=== PATIENT | male | born 1960 | race Hispanic/Latino ===

== ENCOUNTER 2020-12-30 20:47 | Inpatient (IN) | payer MEDICAID ==
[2020-12-30 23:02] LABS: Basophils # (Auto) 0.1 K/mm3 (0.0-0.1); Basophils % (Auto) 1.3 % (0.0-1.8); Eosinophils # (Auto) 0.2 K/mm3 (0.0-0.4); Eosinophils % (Auto) 3.8 % (0.0-4.3); Hematocrit 25.9 % (35.5-45.6); Hemoglobin 8.4 gm/dl (11.8-15.2); Lymphocytes # (Auto) 0.8 K/mm3 (1.2-5.4); Lymphocytes % (Auto) 14.3 % (13.4-35.0); Mean Corpuscular HGB Conc 33 % (32-34); Mean Corpuscular Volume 79 fl (84-94); Monocytes # (Auto) 0.5 K/mm3 (0.0-0.8); Monocytes % (Auto) 8.4 % (0.0-7.3); Platelet Count 162 K/mm3 (140-440); Red Blood Count 3.27 M/mm3 (3.65-5.03); Red Cell Distribution Width 19.8 % (13.2-15.2)
[2020-12-30 23:13] LABS: INR 2.36 (0.87-1.13)
[2020-12-30 23:14] LABS: Partial Thromboplastin Time 46.8 Sec. (24.2-36.6)
--- NOTE | 2020-12-30 23:15 | XRay Report ---
CHEST 1 VIEW 12/30/2020 9:51 PM INDICATION / CLINICAL INFORMATION: volume overload. COMPARISON: None available. FINDINGS: SUPPORT DEVICES: None. HEART / MEDIASTINUM: There is mild to moderate enlargement of the cardiac silhouette. LUNGS / PLEURA: There are generalized bilateral pulmonary opacities. No significant pleural effusion. No pneumothorax. ADDITIONAL FINDINGS: No significant additional findings. IMPRESSION: Suspected bilateral edema/atelectasis with mild to moderate cardiomegaly. Signer Name: Wesly Palmer MD Signed: 12/30/2020 11:10 PM Workstation Name: [id number]
[2020-12-30 23:17] LABS: Albumin 4.1 g/dL (3.9-5); Calcium 8.4 mg/dL (8.4-10.2)
--- NOTE | 2020-12-31 00:20 | Emergency Department Report ---
ED General Adult HPI - General Chief complaint: Abdominal Pain Stated complaint: ABD PAIN Time Seen by Provider: 12/30/20 21:25 Source: EMS Mode of arrival: Stretcher Limitations: Physical Limitation - History of Present Illness Initial comments: The patient presents to the emergency department from [facility] for evaluation of fluid retention. Patient states that he has congestive heart failure and takes 40 mg Lasix twice daily. Patient states he is holding fluid which can be seen in his legs and with increased girth of his abdomen. Patient states he was recently discharged from [facility] on Monday for the same chief complaint. Patient denies chest pain, headache, focal neurological deficits. -: Gradual Severity scale (0 -10): 0 Consistency: constant Improves with: none Worsens with: none Associated Symptoms: denies other symptoms Treatments Prior to Arrival: none - Related Data Allergies Allergy/AdvReac Type Severity Reaction Status Date / Time codeine Allergy Swelling Verified 12/31/20 01:09 ED Review of Systems ROS: Stated complaint: ABD PAIN Other details as noted in HPI Comment: All other systems reviewed and negative Constitutional: denies: chills, fever Eyes: denies: eye pain, eye discharge, vision change ENT: denies: ear pain, throat pain Respiratory: denies: cough, shortness of breath, wheezing Cardiovascular: denies: chest pain, palpitations Endocrine: no symptoms reported Gastrointestinal: denies: abdominal pain, nausea, diarrhea Genitourinary: denies: urgency, dysuria Musculoskeletal: denies: back pain, joint swelling, arthralgia Skin: denies: rash, lesions Neurological: denies: headache, weakness, paresthesias Psychiatric: denies: anxiety, depression Hematological/Lymphatic: denies: easy bleeding, easy bruising ED Past Medical Hx - Social History Smoking Status: Never Smoker Substance Use Type: None ED Physical Exam - General Limitations: Physical Limitation General appearance: alert, in no apparent distress - Head Head exam: Present: atraumatic, normocephalic - Eye Eye exam: Present: normal appearance - ENT ENT exam: Present: mucous membranes moist - Neck Neck exam: Present: normal inspection - Respiratory Respiratory exam: Present: normal lung sounds bilaterally, rales. Absent: respiratory distress - Cardiovascular Cardiovascular Exam: Present: regular rate, normal rhythm. Absent: systolic murmur, diastolic murmur, rubs, gallop - GI/Abdominal GI/Abdominal exam: Present: soft, distended, normal bowel sounds. Absent: tenderness - Rectal Rectal exam: Present: deferred - Extremities Exam Extremities exam: Present: normal inspection, other (Bilateral pitting edema) - Back Exam Back exam: Present: normal inspection - Neurological Exam Neurological exam: Present: alert, oriented X3 - Psychiatric Psychiatric exam: Present: normal affect, normal mood - Skin Skin exam: Present: warm, dry, intact, normal color. Absent: rash ED Course Vital Signs 12/30/20 12/30/20 12/30/20 21:10 21:31 22:01 Temperature 98.1 F Pulse Rate 92 H 89 94 H Respiratory 17 20 21 Rate Blood Pressure 126/72 124/63 122/76 Blood Pressure 126/72 [Left] O2 Sat by Pulse 97 95 91 Oximetry 12/30/20 12/30/20 12/30/20 22:31 23:01 23:31 Temperature Pulse Rate 95 H 89 92 H Respiratory 13 21 14 Rate Blood Pressure 120/65 129/63 130/71 Blood Pressure [Left] O2 Sat by Pulse 92 98 99 Oximetry ED Medical Decision Making - Lab Data Result diagrams: 12/30/20 22:33 12/30/20 22:33 Lab Results 12/30/20 12/30/20 12/30/20 Range/Units 22:33 22:33 22:33 WBC 5.8 (4.5-11.0) K/mm3 RBC 3.27 L (3.65-5.03) M/mm3 Hgb 8.4 L (11.8-15.2) gm/dl Hct 25.9 L (35.5-45.6) % MCV 79 L (84-94) fl MCH 26 L (28-32) pg MCHC 33 (32-34) % RDW 19.8 H (13.2-15.2) % Plt Count 162 (140-440) K/mm3 Lymph % (Auto) 14.3 (13.4-35.0) % [place] % (Auto) 8.4 H (0.0-7.3) % Eos % (Auto) 3.8 (0.0-4.3) % Baso % (Auto) 1.3 (0.0-1.8) % Lymph # (Auto) 0.8 L (1.2-5.4) K/mm3 [place] # (Auto) 0.5 (0.0-0.8) K/mm3 Eos # (Auto) 0.2 (0.0-0.4) K/mm3 Baso # (Auto) 0.1 (0.0-0.1) K/mm3 Seg Neutrophils % 72.2 H (40.0-70.0) % Seg Neutrophils # 4.2 (1.8-7.7) K/mm3 PT 26.0 H (12.2-14.9) Sec. INR 2.36 H (0.87-1.13) APTT 46.8 H (24.2-36.6) Sec. Sodium 137 (137-145) mmol/L Potassium 4.7 (3.6-5.0) mmol/L Chloride 100.0 (98-107) mmol/L Carbon Dioxide 27 (22-30) mmol/L Anion Gap 15 mmol/L BUN 35 H (9-20) mg/dL Creatinine 2.4 H (0.8-1.3) mg/dL Estimated GFR 28 ml/min BUN/Creatinine Ratio 15 % Glucose 87 (75-100) mg/dL Calcium 8.4 (8.4-10.2) mg/dL Total Bilirubin 0.80 (0.1-1.2) mg/dL AST 21 (5-40) units/L ALT 13 (7-56) units/L Alkaline Phosphatase 77 (35-129) units/L NT-Pro-B Natriuret Pep 4775 H (0-900) pg/mL Total Protein 7.2 (6.3-8.2) g/dL Albumin 4.1 (3.9-5) g/dL Albumin/Globulin Ratio 1.3 % Lipase 73 H (13-60) units/L - Radiology Data Radiology results: report reviewed - Medical Decision Making Patient given 60 mg IV Lasix Critical Care Time: Yes Critical care time in (mins) excluding proc time.: 35 Critical care attestation.: If time is entered above; I have spent that time in minutes in the direct care of this critically ill patient, excluding procedure time. ED Disposition Clinical Impression: CHF exacerbation Disposition: OP ADMIT IP TO THIS HOSP Is pt being admited?: Yes Does the pt Need Aspirin: No Condition: Fair Referrals: MIKEY ARRIETA MD [Primary Care Provider] - 3-5 Days
[2020-12-31] MEDS ORDERED: FUROSEMIDE 40 MG/4 ML INJ IV ONE (01:20)
[2020-12-31] MEDS ORDERED: NITROGLYCERIN 0.4 MG TAB SUBL SL PRN (02:42)
[2020-12-31] MEDS ORDERED: ONDANSETRON 4 MG/2 ML INJ IV PRN (02:42)
[2020-12-31] MEDS ORDERED: hydrALAZINE 20 MG/1 ML INJ IV PRN (02:44)
--- NOTE | 2020-12-31 02:49 | History and Physical Report ---
History of Present Illness Date of examination: 12/31/20 Date of admission: 12/31/20 01:29 Chief complaint: Abdominal pain Abdominal swelling History of present illness: 60 years old male with history of CHF morbid obesity was brought to the emergency department from [facility] for evaluation of fluid retention and abdominal pain and swelling. Patient states that he has congestive heart failure and takes 40 mg Lasix twice daily. Patient states he i s holding fluid which can be seen in his legs and with increased girth of his abdomen. Patient states he was recently discharged from [facility] on Monday for the same chief complaint. Patient denies chest pain, headache, focal neurological deficits. In the ER patient is found to have acute CHF exacerbation patient BNP is 4775. Also patient BUN is 35 creatinine 2.4 Past History Past Medical History: heart failure, hypertension, other (Obesity, back pain) Medications and Allergies Allergies Allergy/AdvReac Type Severity Reaction Status Date / Time codeine Allergy Swelling Verified 12/31/20 01:09 Review of Systems Cardiovascular: edema, shortness of breath, dyspnea on exertion Respiratory: shortness of breath, dyspnea on exertion Gastrointestinal: abdominal pain, other (Abdominal swelling) Exam - Constitutional Vitals: Temp Pulse Resp BP Pulse Ox 98.1 F 90 22 158/96 97 12/30/20 21:10 12/31/20 02:05 12/31/20 02:05 12/31/20 02:05 12/31/20 02:05 General appearance: Present: no acute distress, well-nourished - EENT Eyes: Present: PERRL ENT: hearing intact, clear oral mucosa - Neck Neck: Present: supple, normal ROM - Respiratory Respiratory effort: normal Respiratory: bilateral: rales - Cardiovascular Heart Sounds: Present: S1 & S2. Absent: rub, click - Extremities Extremities: pulses symmetrical, No edema Extremity abnormal: edema Peripheral Pulses: within normal limits - Abdominal General gastrointestinal: Present: soft, non-tender, non-distended, normal bowel sounds Male genitourinary: Present: normal - Integumentary Integumentary: Present: clear, warm, dry - Musculoskeletal Musculoskeletal: gait normal, strength equal bilaterally - Psychiatric Psychiatric: appropriate mood/affect, intact judgment & insight - Neurologic Neurologic: CNII-XII intact, moves all extremities Results - Labs CBC & Chem 7: 12/30/20 22:33 12/30/20 22:33 Labs: Laboratory Last Values WBC 5.8 K/mm3 (4.5-11.0) 12/30/20 22:33 RBC 3.27 M/mm3 (3.65-5.03) L 12/30/20 22:33 Hgb 8.4 gm/dl (11.8-15.2) L 12/30/20 22:33 Hct 25.9 % (35.5-45.6) L 12/30/20 22:33 MCV 79 fl (84-94) L 12/30/20 22:33 MCH 26 pg (28-32) L 12/30/20 22:33 MCHC 33 % (32-34) 12/30/20 22:33 RDW 19.8 % (13.2-15.2) H 12/30/20 22:33 Plt Count 162 K/mm3 (140-440) 12/30/20 22:33 Lymph % (Auto) 14.3 % (13.4-35.0) 12/30/20 22:33 [place] % (Auto) 8.4 % (0.0-7.3) H 12/30/20 22:33 Eos % (Auto) 3.8 % (0.0-4.3) 12/30/20 22:33 Baso % (Auto) 1.3 % (0.0-1.8) 12/30/20 22:33 Lymph # (Auto) 0.8 K/mm3 (1.2-5.4) L 12/30/20 22:33 [place] # (Auto) 0.5 K/mm3 (0.0-0.8) 12/30/20 22:33 Eos # (Auto) 0.2 K/mm3 (0.0-0.4) 12/30/20 22:33 Baso # (Auto) 0.1 K/mm3 (0.0-0.1) 12/30/20 22:33 Seg Neutrophils % 72.2 % (40.0-70.0) H 12/30/20 22:33 Seg Neutrophils # 4.2 K/mm3 (1.8-7.7) 12/30/20 22:33 PT 26.0 Sec. (12.2-14.9) H 12/30/20 22:33 INR 2.36 (0.87-1.13) H 12/30/20 22:33 APTT 46.8 Sec. (24.2-36.6) H 12/30/20 22:33 Sodium 137 mmol/L (137-145) 12/30/20 22:33 Potassium 4.7 mmol/L (3.6-5.0) 12/30/20 22:33 Chloride 100.0 mmol/L (98-107) 12/30/20 22:33 Carbon Dioxide 27 mmol/L (22-30) 12/30/20 22:33 Anion Gap 15 mmol/L 12/30/20 22:33 BUN 35 mg/dL (9-20) H 12/30/20 22:33 Creatinine 2.4 mg/dL (0.8-1.3) H 12/30/20 22:33 Estimated GFR 28 ml/min 12/30/20 22:33 BUN/Creatinine Ratio 15 % 12/30/20 22:33 Glucose 87 mg/dL (75-100) 12/30/20 22:33 Calcium 8.4 mg/dL (8.4-10.2) 12/30/20 22:33 Total Bilirubin 0.80 mg/dL (0.1-1.2) 12/30/20 22:33 AST 21 units/L (5-40) 12/30/20 22:33 ALT 13 units/L (7-56) 12/30/20 22:33 Alkaline Phosphatase 77 units/L (35-129) 12/30/20 22:33 NT-Pro-B Natriuret Pep 4775 pg/mL (0-900) H 12/30/20 22:33 Total Protein 7.2 g/dL (6.3-8.2) 12/30/20 22:33 Albumin 4.1 g/dL (3.9-5) 12/30/20 22:33 Albumin/Globulin Ratio 1.3 % 12/30/20 22:33 Lipase 73 units/L (13-60) H 12/30/20 22:33 - Imaging and Cardiology Chest x-ray: report reviewed Assessment and Plan VTE prophylaxis?: Chemical Plan of care discussed with patient/family: Yes - Patient Problems (1) CHF exacerbation Current Visit: Yes Status: Acute Plan to address problem: Admit the patient to the medical floor telemetry. Put the patient on CHF pathway. Lasix 40 mg IV daily. Fluid restriction. Maintain strict input output. Echocardiogram. Will consult cardiology for evaluation (2) Hypertension Current Visit: Yes Status: Acute Plan to address problem: Patient is on hydralazine 10 mg IV every 6 hours as needed. We also put the patient on lisinopril 5 mg p.o. daily. We will monitor the blood pressure closely (3) Morbid obesity Current Visit: Yes Status: Acute Plan to address problem: We counseled the patient regarding weight reduction. Outpatient referral for bariatric surgery (4) ALFREDA (acute kidney injury) Current Visit: Yes Status: Acute Plan to address problem: Patient BUN is 35 creatinine is 2.4. Will avoid nephrotoxic drug. We will consult nephrology for evaluation. Repeat BMP in the morning (5) DVT prophylaxis Current Visit: Yes Status: Acute Plan to address problem: Heparin 5000 units subcu every 8 hours for DVT prophylaxis. Protonix 40 mg p.o. daily for GI prophylaxis. Patient is a full code
[2020-12-31] MEDS: ACETAMINOPHEN 325 MG TAB PO PRN ×2 (04:21→20:56)
[2020-12-31] MEDS: HEPARIN 5,000 UNIT/1 ML VIAL SUB-Q SCH ×3 (05:36→21:01)
[2020-12-31] MEDS ORDERED: FUROSEMIDE 40 MG/4 ML INJ IV SCH (06:00)
[2020-12-31] MEDS: PANTOPRAZOLE 40 MG TAB PO SCH (08:29)
[2020-12-31] MEDS: IPRATROPIUM/ALBUTEROL SULFATE 3 ML AMPUL.NEB IH SCH ×3 (08:37→21:26)
[2020-12-31] MEDS: FUROSEMIDE 40 MG/4 ML INJ IV SCH (09:03)
[2020-12-31] MEDS ORDERED: FAMOTIDINE 20 MG TAB PO SCH (10:00)
--- NOTE | 2020-12-31 11:16 | Consultation ---
History of Present Illness - Reason for Consult Consult date: 12/31/20 - History of Present Illness patient is a60 year old male with CHF and CKD, had a recent admission to [facility] for volume overload, he was treated with diuretics and discharged to SNF, he was sent to [facility] due to worsening volume overload and SOB, CXR noted for pulm edema and he was started on lasix. he was noted to have abnormal kidney function and renal consult was requested Past History Past Medical History: heart failure, hypertension, other (Obesity, back pain) Medications and Allergies Allergies Allergy/AdvReac Type Severity Reaction Status Date / Time codeine Allergy Swelling Verified 12/31/20 01:09 Active Meds: Active Medications Acetaminophen (Acetaminophen 325 Mg Tab) 650 mg PO Q4H PRN PRN Reason: Pain MILD(1-3)/Fever >100.5/TAN Last Admin: 12/31/20 04:21 Dose: 650 mg Documented by: Albuterol/Ipratropium (Ipratropium/Albuterol Sulfate 3 Ml Ampul.Neb) 1 ampul IH Q6HRT [facility] Last Admin: 12/31/20 08:37 Dose: 1 ampul Documented by: Furosemide (Furosemide 40 Mg/4 Ml Inj) 40 mg IV QDAY [facility] Last Admin: 12/31/20 09:03 Dose: 40 mg Documented by: Heparin Sodium (Porcine) (Heparin 5,000 Unit/1 Ml Vial) 5,000 unit SUB-Q Q8HR [facility] Last Admin: 12/31/20 05:36 Dose: 5,000 unit Documented by: Hydralazine HCl (Hydralazine 20 Mg/1 Ml Inj) 10 mg IV Q6H PRN PRN Reason: htn Nitroglycerin (Nitroglycerin 0.4 Mg Tab Subl) 0.4 mg SL .Q5MIN PRN PRN Reason: Chest Pain Ondansetron HCl (Ondansetron 4 Mg/2 Ml Inj) 4 mg IV Q8H PRN PRN Reason: Nausea And Vomiting Pantoprazole Sodium (Pantoprazole 40 Mg Tab) 40 mg PO QDAC [facility] Last Admin: 12/31/20 08:29 Dose: 40 mg Documented by: Sodium Chloride (Sodium Chloride 0.9% 10 Ml Flush Syringe) 10 ml IV BID [facility] Sodium Chloride (Sodium Chloride 0.9% 10 Ml Flush Syringe) 10 ml IV PRN PRN PRN Reason: LINE FLUSH Review of Systems All systems: negative (SOB) Exam - Vital Signs Vital signs: Vital Signs Temp Pulse Resp BP Pulse Ox 98.1 F 92 H 17 126/72 97 12/30/20 21:10 12/30/20 21:10 12/30/20 21:10 12/30/20 21:10 12/30/20 21:10 - General Appearance General appearance: other (on BIPAP) EENT: ATNC, PERRL, mucous membranes dry Neck: Present: neck supple Respiratory: Decreased Breath Sounds Heart: tachycardia Gastrointestinal: Present: normoactive bowel sounds, obese Integumentary: no rash, warm and dry Neurologic: no focal deficit, no asterixis Musculoskeletal: Present: other (2+ pitting edema in BLE) Psychiatric: cooperative Results - Lab Results 12/30/20 22:33 12/30/20 22:33 Most recent lab results Calcium 8.4 mg/dL (8.4-10.2) 12/30/20 22:33 Assessment and Plan (1) CHF exacerbation (2) Hypertension (3) Morbid obesity (4) ALFREDA (acute kidney injury) his kidney function close to baseline THOMAS jade for now will check bladder scan, he came with [place], excellent UOP avoid nephrotoxins strict I&O daily weight
--- NOTE | 2020-12-31 11:32 | Consultation ---
History of Present Illness Consult date: 12/31/20 Consult reason: congestive heart failure History of present illness: This is a 60-year old male that has a history of atrial fibrillation, on Xarelto for anticoagulation. An echocardiogram done 6 months ago reports an LVEF 45-50%. There was dilated right heart chambers with moderate pulmonary hypertension, RVSP 55 mmHg. Findings consistent with cor-pulmonale. Co-morbidities includes chronic renal failure, hypertension, urinary retention, Anemia, SUSHILA uses a CPAP, and obesity. He was brought in from the retirement with shortness of breath and edema. Of note, he was recently discharged from [facility] with similar presentation symptoms. Chest x-ray reports mild cardiomegaly with bilateral patchy opacities. No fever. Initial labs shows a HCT of 25. INR of 2.3. Creatinine of 2.4 and a elevated lipase of 73. AST is normal. There is no 12- lead ECG available but telemetry shows atrial fibrillation with a well controlled ventricular rate. Past History Past Medical History: hypertension, renal failure, other (Obesity, back pain) Medications and Allergies Allergies Allergy/AdvReac Type Severity Reaction Status Date / Time codeine Allergy Swelling Verified 12/31/20 01:09 Active Meds: Active Medications Acetaminophen (Acetaminophen 325 Mg Tab) 650 mg PO Q4H PRN PRN Reason: Pain MILD(1-3)/Fever >100.5/TAN Last Admin: 12/31/20 04:21 Dose: 650 mg Documented by: Albuterol/Ipratropium (Ipratropium/Albuterol Sulfate 3 Ml Ampul.Neb) 1 ampul IH Q6HRT [facility] Last Admin: 12/31/20 08:37 Dose: 1 ampul Documented by: Furosemide (Furosemide 40 Mg/4 Ml Inj) 40 mg IV QDAY [facility] Last Admin: 12/31/20 09:03 Dose: 40 mg Documented by: Heparin Sodium (Porcine) (Heparin 5,000 Unit/1 Ml Vial) 5,000 unit SUB-Q Q8HR [facility] Last Admin: 12/31/20 05:36 Dose: 5,000 unit Documented by: Hydralazine HCl (Hydralazine 20 Mg/1 Ml Inj) 10 mg IV Q6H PRN PRN Reason: htn Nitroglycerin (Nitroglycerin 0.4 Mg Tab Subl) 0.4 mg SL .Q5MIN PRN PRN Reason: Chest Pain Ondansetron HCl (Ondansetron 4 Mg/2 Ml Inj) 4 mg IV Q8H PRN PRN Reason: Nausea And Vomiting Pantoprazole Sodium (Pantoprazole 40 Mg Tab) 40 mg PO QDAC [facility] Last Admin: 12/31/20 08:29 Dose: 40 mg Documented by: Sodium Chloride (Sodium Chloride 0.9% 10 Ml Flush Syringe) 10 ml IV BID [facility] Sodium Chloride (Sodium Chloride 0.9% 10 Ml Flush Syringe) 10 ml IV PRN PRN PRN Reason: LINE FLUSH Physical Examination Vital Signs Temp Pulse Resp BP Pulse Ox 98.1 F 92 H 17 126/72 97 12/30/20 21:10 12/30/20 21:10 12/30/20 21:10 12/30/20 21:10 12/30/20 21:10 General appearance: other (on Cpap) Cardiac: Positive: irregularly irregular Results 12/30/20 22:33 12/30/20 22:33 Cardiac Enzymes 12/30/20 Range/Units 22:33 AST 21 (5-40) units/L Coagulation 12/30/20 Range/Units 22:33 PT 26.0 H (12.2-14.9) Sec. INR 2.36 H (0.87-1.13) APTT 46.8 H (24.2-36.6) Sec. CBC 12/30/20 Range/Units 22:33 WBC 5.8 (4.5-11.0) K/mm3 RBC 3.27 L (3.65-5.03) M/mm3 Hgb 8.4 L (11.8-15.2) gm/dl Hct 25.9 L (35.5-45.6) % Plt Count 162 (140-440) K/mm3 Lymph # (Auto) 0.8 L (1.2-5.4) K/mm3 [place] # (Auto) 0.5 (0.0-0.8) K/mm3 Eos # (Auto) 0.2 (0.0-0.4) K/mm3 Baso # (Auto) 0.1 (0.0-0.1) K/mm3 Comprehensive Metabolic Panel 12/30/20 Range/Units 22:33 Sodium 137 (137-145) mmol/L Potassium 4.7 (3.6-5.0) mmol/L Chloride 100.0 (98-107) mmol/L Carbon Dioxide 27 (22-30) mmol/L BUN 35 H (9-20) mg/dL Creatinine 2.4 H (0.8-1.3) mg/dL Glucose 87 (75-100) mg/dL Calcium 8.4 (8.4-10.2) mg/dL AST 21 (5-40) units/L ALT 13 (7-56) units/L Alkaline Phosphatase 77 (35-129) units/L Total Protein 7.2 (6.3-8.2) g/dL Albumin 4.1 (3.9-5) g/dL Assessment and Plan Atrial fibrillation, rate controlled on Xarelto as an outpatient Cor-pulmonale Volume overload SUSHILA, uses Cpap Hypertension Urinary retention Chronic renal failure Chronic Anemia
--- NOTE | 2020-12-31 14:07 | Event Note ---
Date: 12/31/20 This is the second visit after midnight Patient seen and examined Currently resting with BiPAP This is an 60 years old white male with history of CHF morbid obesity CKD was brought to the emergency department from [facility] for evaluation of fluid retention and abdominal pain and swelling. Continue current management and plan as dictated in the H&P Follow cardiology recommends recommendation
[2021-01-01] MEDS: ACETAMINOPHEN 325 MG TAB PO PRN ×3 (00:55→22:07)
[2021-01-01] MEDS: IPRATROPIUM/ALBUTEROL SULFATE 3 ML AMPUL.NEB IH SCH ×4 (01:17→21:25)
[2021-01-01] MEDS: HEPARIN 5,000 UNIT/1 ML VIAL SUB-Q SCH ×3 (05:44→22:07)
[2021-01-01 05:55] LABS: Basophils # (Auto) 0.1 K/mm3 (0.0-0.1); Basophils % (Auto) 0.9 % (0.0-1.8); Eosinophils # (Auto) 0.2 K/mm3 (0.0-0.4); Eosinophils % (Auto) 3.1 % (0.0-4.3); Hematocrit 25.5 % (35.5-45.6); Hemoglobin 8.3 gm/dl (11.8-15.2); Lymphocytes # (Auto) 0.8 K/mm3 (1.2-5.4); Lymphocytes % (Auto) 13.4 % (13.4-35.0); Mean Corpuscular HGB Conc 33 % (32-34); Mean Corpuscular Volume 78 fl (84-94); Monocytes # (Auto) 0.4 K/mm3 (0.0-0.8); Monocytes % (Auto) 7.4 % (0.0-7.3); Platelet Count 163 K/mm3 (140-440); Red Blood Count 3.26 M/mm3 (3.65-5.03)
[2021-01-01 06:11] LABS: Calcium 8.4 mg/dL (8.4-10.2)
[2021-01-01] MEDS: PANTOPRAZOLE 40 MG TAB PO SCH (08:14)
[2021-01-01] MEDS: FUROSEMIDE 40 MG/4 ML INJ IV SCH (09:43)
--- NOTE | 2021-01-01 10:49 | Electrocardiograph Report ---
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
--- NOTE | 2021-01-01 10:55 | Progress Note ---
Assessment and Plan (1) CHF exacerbation (2) Hypertension (3) Morbid obesity (4) ALFREDA (acute kidney injury) kidney function is stable, diuresis per cardiology, good UOP avoid nephrotoxins strict I&O daily weight No indication for [employer] Subjective Date of service: 01/01/21 Principal diagnosis: CKD Interval history: no overnight events Objective - Vital Signs Vital signs: Vital Signs - 12hr 12/31/20 01/01/21 01/01/21 23:57 01:25 05:12 Temperature 97.2 F L Pulse Rate 94 H 103 H Pulse Rate [ 104 H Anterior Bilateral Throughout] Respiratory 34 H 22 Rate Respiratory 18 Rate [Anterior Bilateral Throughout] Blood Pressure 147/67 151/68 O2 Sat by Pulse 98 98 Oximetry 01/01/21 01/01/21 01/01/21 06:00 08:20 08:23 Temperature Pulse Rate 103 H Pulse Rate [ 91 H Anterior Bilateral Throughout] Respiratory 20 Rate Respiratory 25 H Rate [Anterior Bilateral Throughout] Blood Pressure O2 Sat by Pulse 98 Oximetry 01/01/21 01/01/21 09:44 10:20 Temperature Pulse Rate 118 H 86 Pulse Rate [ Anterior Bilateral Throughout] Respiratory 25 H Rate Respiratory Rate [Anterior Bilateral Throughout] Blood Pressure 175/88 O2 Sat by Pulse 98 Oximetry - General Appearance General appearance: well-developed, well-nourished, obese EENT: ATNC, PERRL, mucous membranes moist Neck: no JVD, no carotid bruit Respiratory: Present: Decreased Breath Sounds Cardiology: tachycardia Gastrointestinal: normoactive bowel sounds, no tenderness, no distended, no masses, obese Integumentary: no rash, warm and dry Neurologic: no focal deficit, no asterixis, alert and oriented x3 Musculoskeletal: other (edema in BLE) Psychiatric: cooperative - Lab 01/01/21 04:44 01/01/21 04:44 Most recent lab results Calcium 8.4 mg/dL (8.4-10.2) 01/01/21 04:44 Medications & Allergies - Medications Allergies/Adverse Reactions: Allergies codeine Allergy (Verified 12/31/20 01:09) Swelling Active Medications: Generic Name Dose Route Start Last Admin Trade Name Freq PRN Reason Stop Dose Admin Acetaminophen 650 mg 12/31/20 02:42 01/01/21 00:55 Acetaminophen 325 Mg Tab PO 650 mg Q4H PRN Administration Pain MILD(1-3)/Fever >100.5/TAN Albuterol/Ipratropium 1 ampul 12/31/20 08:00 01/01/21 08:20 Ipratropium/Albuterol Sulfate 3 Ml Ampul.Neb IH 1 ampul Q6HRT [facility] Administration Furosemide 40 mg 12/31/20 10:00 01/01/21 09:43 Furosemide 40 Mg/4 Ml Inj IV 40 mg QDAY [facility] Administration Heparin Sodium (Porcine) 5,000 unit 12/31/20 06:00 01/01/21 05:44 Heparin 5,000 Unit/1 Ml Vial SUB-Q 5,000 unit Q8HR [facility] Administration Hydralazine HCl 10 mg 12/31/20 02:44 01/01/21 09:44 Hydralazine 20 Mg/1 Ml Inj IV 10 mg Q6H PRN Administration htn Nitroglycerin 0.4 mg 12/31/20 02:42 Nitroglycerin 0.4 Mg Tab Subl SL .Q5MIN PRN Chest Pain Ondansetron HCl 4 mg 12/31/20 02:42 Ondansetron 4 Mg/2 Ml Inj IV Q8H PRN Nausea And Vomiting Pantoprazole Sodium 40 mg 12/31/20 07:30 01/01/21 08:14 Pantoprazole 40 Mg Tab PO 40 mg QDAC [facility] Administration Sodium Chloride 10 ml 12/31/20 10:00 01/01/21 09:47 Sodium Chloride 0.9% 10 Ml Flush Syringe IV 10 ml BID [facility] Administration Sodium Chloride 10 ml 12/31/20 02:42 Sodium Chloride 0.9% 10 Ml Flush Syringe IV PRN PRN LINE FLUSH
--- NOTE | 2021-01-01 14:19 | Progress Note ---
Subjective Date of service: 01/01/21 Principal diagnosis: CKD Interval history: 60 years old male with history of CHF morbid obesity was brought to the emergency department from [facility] for evaluation of fluid retention and abdominal pain and swelling. Patient states that he has congestive heart failure and takes 40 mg Lasix twice daily. Patient states he is holding fluid which can be seen in his legs and with increased girth of his abdomen. Patient states he was recently discharged from [facility] on Monday for the same chief complaint. Patient denies chest pain, headache, focal neurological deficits. In the ER patient is found to have acute CHF exacerbation patient BNP is 4775. Also patient BUN is 35 creatinine 2.4 01/01 patient is alert and oriented x3. Complains of mild shortness of breath complains of.Numbness in the legs which he says is due to neuropathy. He denies any cough or chest pain. Denies fever or chills. Nephrology and cardiology not es reviewed. Lab results reviewed Assessment and plan Volume overload Cardiology note reviewed Continue IV diuresis Echo results reviewed EF 45 to 50% Cor pulmonale Cardiology note reviewed Chronic hypoxia Patient is O2 dependent and states he is on 4 L at home via nasal cannula Atrial fibrillation-rate controlled Continue Xarelto Acute kidney injury Rule out acute on chronic kidney disease Nephrology consulted Continue diuresis Avoid nephrotoxins Obstructive sleep apnea on CPAP at at bedtime Morbid obesity Due to excess calories Counseling on diet, exercise and weight loss was emphasized Normocytic anemia No overt bleeding Monitor H&H Objective - Constitutional Vitals: Vital Signs - 12hr 01/01/21 01/01/21 01/01/21 05:12 06:00 08:20 Temperature 97.2 F L Pulse Rate 103 H 103 H Pulse Rate [ 91 H Anterior Bilateral Throughout] Respiratory 22 Rate Respiratory 25 H Rate [Anterior Bilateral Throughout] Blood Pressure 151/68 O2 Sat by Pulse 98 98 Oximetry 01/01/21 01/01/21 01/01/21 08:23 09:44 10:20 Temperature Pulse Rate 118 H 86 Pulse Rate [ Anterior Bilateral Throughout] Respiratory 20 25 H Rate Respiratory Rate [Anterior Bilateral Throughout] Blood Pressure 175/88 O2 Sat by Pulse 98 Oximetry 01/01/21 13:05 Temperature Pulse Rate Pulse Rate [ 98 H Anterior Bilateral Throughout] Respiratory Rate Respiratory 24 Rate [Anterior Bilateral Throughout] Blood Pressure O2 Sat by Pulse Oximetry General appearance: Present: no acute distress, obese - EENT Eyes: PERRL ENT: hearing intact - Neck Neck: supple, normal ROM, no masses or JVD - Respiratory Respiratory effort: normal Respiratory: bilateral: CTA, diminished - Cardiovascular Rhythm: regular Heart Sounds: Present: S1 & S2 Extremity abnormal: edema (Bilateral nonpitting) - Gastrointestinal General gastrointestinal: Present: soft, non-tender Rectal Exam: deferred - Genitourinary Male genitourinary: deferred - Integumentary Integumentary: clear - Musculoskeletal Musculoskeletal: strength equal bilaterally - Neurologic Neurologic: no focal deficits - Psychiatric Psychiatric: appropriate mood/affect - Labs CBC & Chem 7: 01/01/21 04:44 01/01/21 04:44 Labs: Abnormal lab results 01/01/21 01/01/21 Range/Units 04:44 04:44 RBC 3.26 L (3.65-5.03) M/mm3 Hgb 8.3 L (11.8-15.2) gm/dl Hct 25.5 L (35.5-45.6) % MCV 78 L (84-94) fl MCH 25 L (28-32) pg RDW 19.0 H (13.2-15.2) % [place] % (Auto) 7.4 H (0.0-7.3) % Lymph # (Auto) 0.8 L (1.2-5.4) K/mm3 Seg Neutrophils % 75.2 H (40.0-70.0) % BUN 33 H (9-20) mg/dL Creatinine 2.2 H (0.8-1.3) mg/dL Glucose 160 H (75-100) mg/dL
--- NOTE | 2021-01-01 17:05 | Progress Note ---
Assessment and Plan - Patient Problems (1) Chronic atrial fibrillation Current Visit: Yes Status: Acute Plan to address problem: Continue rate control strategy and chronic oral anticoagulation. Subjective Date of service: 01/01/21 Principal diagnosis: CKD Interval history: Patient is comfortable, no cardiac complaints, looks and feels better. Objective Vital Signs Temp Pulse Pulse Resp Resp BP Pulse Ox 01/01/21 13:05 98 H 24 01/01/21 10:20 86 25 H 98 01/01/21 09:44 118 H 175/88 01/01/21 08:23 20 01/01/21 08:20 91 H 25 H 98 01/01/21 06:00 103 H 01/01/21 05:12 97.2 F L 103 H 22 151/68 98 01/01/21 01:25 104 H 18 12/31/20 23:57 94 H 34 H 147/67 98 12/31/20 22:00 106 H 12/31/20 21:32 79 98 H 23 20 98 12/31/20 21:30 93 12/31/20 19:44 99.1 F 93 H 20 132/56 97 - Physical Examination General: No Apparent Distress Neck: Positive: neck supple Cardiac: Positive: irregularly irregular Lungs: Positive: Decreased Breath Sounds Neuro: Positive: Grossly Intact Abdomen: Positive: Distended Skin: Positive: Clear Extremities: Present: edema (Trace) - Labs and Meds CBC 01/01/21 Range/Units 04:44 WBC 5.8 (4.5-11.0) K/mm3 RBC 3.26 L (3.65-5.03) M/mm3 Hgb 8.3 L (11.8-15.2) gm/dl Hct 25.5 L (35.5-45.6) % Plt Count 163 (140-440) K/mm3 Lymph # (Auto) 0.8 L (1.2-5.4) K/mm3 [place] # (Auto) 0.4 (0.0-0.8) K/mm3 Eos # (Auto) 0.2 (0.0-0.4) K/mm3 Baso # (Auto) 0.1 (0.0-0.1) K/mm3 Comprehensive Metabolic Panel 01/01/21 Range/Units 04:44 Sodium 138 (137-145) mmol/L Potassium 4.2 (3.6-5.0) mmol/L Chloride 100.4 (98-107) mmol/L Carbon Dioxide 24 (22-30) mmol/L BUN 33 H (9-20) mg/dL Creatinine 2.2 H (0.8-1.3) mg/dL Glucose 160 H (75-100) mg/dL Calcium 8.4 (8.4-10.2) mg/dL
[2021-01-02] MEDS: IPRATROPIUM/ALBUTEROL SULFATE 3 ML AMPUL.NEB IH SCH ×4 (02:05→20:33)
[2021-01-02] MEDS: ACETAMINOPHEN 325 MG TAB PO PRN ×2 (03:26→15:45)
[2021-01-02 05:40] LABS: Basophils # (Auto) 0.1 K/mm3 (0.0-0.1); Eosinophils # (Auto) 0.2 K/mm3 (0.0-0.4); Eosinophils % (Auto) 3.1 % (0.0-4.3); Hematocrit 25.6 % (35.5-45.6); Hemoglobin 8.3 gm/dl (11.8-15.2); Lymphocytes # (Auto) 0.5 K/mm3 (1.2-5.4); Lymphocytes % (Auto) 7.4 % (13.4-35.0); Mean Corpuscular HGB Conc 32 % (32-34); Mean Corpuscular Volume 79 fl (84-94); Monocytes # (Auto) 0.5 K/mm3 (0.0-0.8); Monocytes % (Auto) 7.3 % (0.0-7.3); Platelet Count 148 K/mm3 (140-440); Red Blood Count 3.24 M/mm3 (3.65-5.03); Red Cell Distribution Width 19.5 % (13.2-15.2)
[2021-01-02 05:59] LABS: Calcium 8.6 mg/dL (8.4-10.2)
[2021-01-02] MEDS: HEPARIN 5,000 UNIT/1 ML VIAL SUB-Q SCH (06:05)
--- NOTE | 2021-01-02 10:14 | Progress Note ---
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 Objective - Exam Narrative Exam: General appearance: well-developed, well-nourished, obese EENT: ATNC, PERRL, mucous membranes moist Neck: no JVD, no carotid bruit Respiratory: Present: Decreased Breath Sounds Cardiology: tachycardia Gastrointestinal: normoactive bowel sounds, no tenderness, no distended, no masses, obese Integumentary: no rash, warm and dry Neurologic: no focal deficit, no asterixis, alert and oriented x3 Musculoskeletal: other (edema in BLE) Psychiatric: cooperative - Vital Signs Vital signs: Vital Signs - 12hr 01/01/21 01/01/21 01/02/21 23:00 23:46 00:24 Temperature 98.5 F Pulse Rate 106 H 88 Pulse Rate [ Anterior Bilateral Throughout] Respiratory 20 18 22 Rate Respiratory Rate [Anterior Bilateral Throughout] Blood Pressure 113/88 O2 Sat by Pulse 91 99 Oximetry 01/02/21 01/02/21 01/02/21 02:01 03:26 04:50 Temperature 98.2 F Pulse Rate 114 H Pulse Rate [ Anterior Bilateral Throughout] Respiratory 20 20 Rate Respiratory Rate [Anterior Bilateral Throughout] Blood Pressure 157/80 O2 Sat by Pulse 94 91 Oximetry 01/02/21 01/02/21 01/02/21 06:00 08:36 08:50 Temperature 98.1 F Pulse Rate 114 H 109 H Pulse Rate [ 111 H Anterior Bilateral Throughout] Respiratory 22 Rate Respiratory 20 Rate [Anterior Bilateral Throughout] Blood Pressure 121/50 O2 Sat by Pulse 96 Oximetry 01/02/21 08:55 Temperature Pulse Rate Pulse Rate [ Anterior Bilateral Throughout] Respiratory Rate Respiratory Rate [Anterior Bilateral Throughout] Blood Pressure O2 Sat by Pulse 96 Oximetry - Lab 01/02/21 16:39 01/02/21 16:39 Most recent lab results Calcium 8.6 mg/dL (8.4-10.2) 01/02/21 05:06 Medications & Allergies - Medications Allergies/Adverse Reactions: Allergies codeine Allergy (Verified 12/31/20 01:09) Swelling Active Medications: Generic Name Dose Route Start Last Admin Trade Name Freq PRN Reason Stop Dose Admin Acetaminophen 650 mg 12/31/20 02:42 01/02/21 03:26 Acetaminophen 325 Mg Tab PO 650 mg Q4H PRN Administration Pain MILD(1-3)/Fever >100.5/TAN Albuterol/Ipratropium 1 ampul 01/02/21 08:00 01/02/21 08:45 Ipratropium/Albuterol Sulfate 3 Ml Ampul.Neb IH 1 ampul TIDRT GABRIELLA Administration Furosemide 40 mg 12/31/20 10:00 01/01/21 09:43 Furosemide 40 Mg/4 Ml Inj IV 40 mg QDAY GABRIELLA Administration Heparin Sodium (Porcine) 5,000 unit 12/31/20 06:00 01/02/21 06:05 Heparin 5,000 Unit/1 Ml Vial SUB-Q 5,000 unit Q8HR GABRIELLA Administration Hydralazine HCl 10 mg 12/31/20 02:44 01/01/21 09:44 Hydralazine 20 Mg/1 Ml Inj IV 10 mg Q6H PRN Administration htn Nitroglycerin 0.4 mg 12/31/20 02:42 Nitroglycerin 0.4 Mg Tab Subl SL .Q5MIN PRN Chest Pain Ondansetron HCl 4 mg 12/31/20 02:42 Ondansetron 4 Mg/2 Ml Inj IV Q8H PRN Nausea And Vomiting Pantoprazole Sodium 40 mg 12/31/20 07:30 01/01/21 08:14 Pantoprazole 40 Mg Tab PO 40 mg QDAC GABRIELLA Administration Sodium Chloride 10 ml 12/31/20 10:00 01/01/21 22:08 Sodium Chloride 0.9% 10 Ml Flush Syringe IV 10 ml BID GABRIELLA Administration Sodium Chloride 10 ml 12/31/20 02:42 Sodium Chloride 0.9% 10 Ml Flush Syringe IV PRN PRN LINE FLUSH
[2021-01-02] MEDS: FUROSEMIDE 40 MG/4 ML INJ IV SCH (10:59)
[2021-01-02] MEDS: PANTOPRAZOLE 40 MG TAB PO SCH (10:59)
--- NOTE | 2021-01-02 13:13 | Progress Note ---
Subjective Date of service: 01/02/21 Principal diagnosis: CKD Interval history: 60 years old male with history of CHF morbid obesity was brought to the emergency department from [facility] for evaluation of fluid retention and abdominal pain and swelling. Patient states that he has congestive heart failure and takes 40 mg Lasix twice daily. Patient states he is holding fluid which can be seen in his legs and with increased girth of his abdomen. Patient states he was recently discharged from [facility] on Monday for the same chief complaint. Patient denies chest pain, headache, focal neurological deficits. In the ER patient is found to have acute CHF exacerbation patient BNP is 4775. Also patient BUN is 35 creatinine 2.4 01/01 patient is alert and oriented x3. Complains of mild shortness of breath complains of.Numbness in the legs which he says is due to neuropathy. He denies any cough or chest pain. Denies fever or chills. Nephrology and cardiology not es reviewed. Lab results reviewed 01/02 patient is resting with CPAP, no apparent distress and he offers no specific complaints. Medications adjusted for his hypertension and tachycardia Assessment and plan Volume overload Cardiology note reviewed Continue IV diuresis Echo results reviewed EF 45 to 50% Cor pulmonale Cardiology note reviewed Chronic hypoxia Patient is O2 dependent and states he is on 4 L at home via nasal cannula Atrial fibrillation-with moderate tachycardia Continue Xarelto Start on beta-rachelle with metoprolol 25 mg twice daily Acute kidney injury Rule out acute on chronic kidney disease Nephrology consulted Continue diuresis Avoid nephrotoxins Obstructive sleep apnea on CPAP at at bedtime Morbid obesity Due to excess calories Counseling on diet, exercise and weight loss was emphasized Normocytic anemia No overt bleeding Monitor H&H Objective - Constitutional Vitals: Vital Signs - 12hr 01/02/21 01/02/21 01/02/21 02:01 03:26 04:50 Temperature 98.2 F Pulse Rate 114 H Pulse Rate [ Anterior Bilateral Throughout] Pulse Rate [ Apical] Respiratory 20 20 Rate Respiratory Rate [Anterior Bilateral Throughout] Blood Pressure 157/80 O2 Sat by Pulse 94 91 Oximetry 01/02/21 01/02/21 01/02/21 06:00 08:36 08:50 Temperature 98.1 F Pulse Rate 114 H 109 H Pulse Rate [ 111 H Anterior Bilateral Throughout] Pulse Rate [ Apical] Respiratory 22 Rate Respiratory 20 Rate [Anterior Bilateral Throughout] Blood Pressure 121/50 O2 Sat by Pulse 96 Oximetry 01/02/21 01/02/21 01/02/21 08:55 12:00 12:21 Temperature 98.9 F Pulse Rate 123 H 110 H Pulse Rate [ Anterior Bilateral Throughout] Pulse Rate [ 123 H Apical] Respiratory 20 24 Rate Respiratory Rate [Anterior Bilateral Throughout] Blood Pressure 175/104 O2 Sat by Pulse 96 95 89 Oximetry General appearance: Present: no acute distress, obese - EENT Eyes: PERRL, EOM intact ENT: hearing intact - Neck Neck: supple, no masses or JVD - Respiratory Respiratory effort: normal Respiratory: bilateral: diminished - Cardiovascular Rhythm: regular Heart Sounds: Present: S1 & S2 Extremities: No edema - Gastrointestinal General gastrointestinal: Present: soft, non-tender Rectal Exam: deferred - Genitourinary Male genitourinary: deferred - Integumentary Integumentary: clear - Musculoskeletal Musculoskeletal: strength equal bilaterally - Neurologic Neurologic: moves all extremities - Labs CBC & Chem 7: 01/02/21 05:06 01/02/21 05:06 Labs: Abnormal lab results 01/02/21 01/02/21 Range/Units 05:06 05:06 RBC 3.24 L (3.65-5.03) M/mm3 Hgb 8.3 L (11.8-15.2) gm/dl Hct 25.6 L (35.5-45.6) % MCV 79 L (84-94) fl MCH 26 L (28-32) pg RDW 19.5 H (13.2-15.2) % Lymph % (Auto) 7.4 L (13.4-35.0) % Lymph # (Auto) 0.5 L (1.2-5.4) K/mm3 Seg Neutrophils % 81.2 H (40.0-70.0) % Sodium 136 L (137-145) mmol/L BUN 25 H (9-20) mg/dL Creatinine 1.9 H (0.8-1.3) mg/dL Glucose 189 H (75-100) mg/dL
[2021-01-02] MEDS ORDERED: METOPROLOL TARTRATE 25 MG TAB PO SCH (14:00)
[2021-01-02] MEDS: RIVAROXABAN 20 MG TAB PO SCH (16:20)
[2021-01-02 16:50] LABS: Hemoglobin 8.6 gm/dl (11.8-15.2); Mean Corpuscular HGB Conc 33 % (32-34); Mean Corpuscular Volume 78 fl (84-94); Platelet Count 154 K/mm3 (140-440); Red Blood Count 3.34 M/mm3 (3.65-5.03); Red Cell Distribution Width 19.6 % (13.2-15.2)
[2021-01-02 17:03] LABS: INR 1.78 (0.87-1.13)
--- NOTE | 2021-01-02 17:38 | Progress Note ---
Subjective Date of service: 01/02/21 Principal diagnosis: CKD Interval history: follow-up appears in NAD Assessment and Plan - Patient Problems (1) Chronic atrial fibrillation Current Visit: Yes Status: Acute Plan to address problem: Continue rate control strategy and chronic oral anticoagulation. 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 cont IV diuresis, follow BMP, diuresis as much as possible, CXR did not show CHF Subjective Date of service: 01/01/21 Principal diagnosis: CKD, multifactorial edema Objective Vital Signs Temp Pulse Pulse Pulse Resp Resp BP 01/02/21 15:49 98.3 F 111 H 24 157/95 01/02/21 12:21 98.9 F 110 H 24 175/104 01/02/21 12:00 123 H 123 H 20 01/02/21 08:55 01/02/21 08:50 111 H 20 01/02/21 08:36 98.1 F 109 H 22 121/50 01/02/21 06:00 114 H 01/02/21 04:50 98.2 F 114 H 20 157/80 01/02/21 03:26 20 01/02/21 02:01 01/02/21 00:24 88 22 01/01/21 23:46 98.5 F 106 H 18 113/88 01/01/21 23:00 20 01/01/21 22:07 20 01/01/21 22:00 115 H 01/01/21 21:38 01/01/21 20:01 98.5 F 115 H 19 161/88 01/01/21 20:00 93 H 20 Pulse Ox 01/02/21 15:49 93 01/02/21 12:21 89 01/02/21 12:00 95 01/02/21 08:55 96 01/02/21 08:50 01/02/21 08:36 96 01/02/21 06:00 01/02/21 04:50 91 01/02/21 03:26 01/02/21 02:01 94 01/02/21 00:24 99 01/01/21 23:46 91 01/01/21 23:00 01/01/21 22:07 01/01/21 22:00 01/01/21 21:38 93 01/01/21 20:01 93 01/01/21 20:00 - Physical Examination General: No Apparent Distress Neck: Positive: neck supple Cardiac: Positive: Reg Rate and Rhythm, S1/S2 Lungs: Positive: Normal Exam Neuro: Positive: Grossly Intact Abdomen: Positive: Distended. Negative: Pulsations/Bruits Skin: Positive: Clear Extremities: Present: edema (Trace) - Labs and Meds Coagulation 01/02/21 Range/Units 16:39 PT 20.6 H (12.2-14.9) Sec. INR 1.78 H (0.87-1.13) APTT 39.0 H (24.2-36.6) Sec. CBC 01/02/21 01/02/21 Range/Units 05:06 16:39 WBC 6.8 7.2 (4.5-11.0) K/mm3 RBC 3.24 L 3.34 L (3.65-5.03) M/mm3 Hgb 8.3 L 8.6 L (11.8-15.2) gm/dl Hct 25.6 L 26.0 L (35.5-45.6) % Plt Count 148 154 (140-440) K/mm3 Lymph # (Auto) 0.5 L (1.2-5.4) K/mm3 [place] # (Auto) 0.5 (0.0-0.8) K/mm3 Eos # (Auto) 0.2 (0.0-0.4) K/mm3 Baso # (Auto) 0.1 (0.0-0.1) K/mm3 Comprehensive Metabolic Panel 01/02/21 01/02/21 Range/Units 05:06 16:39 Sodium 136 L (137-145) mmol/L Potassium 4.2 (3.6-5.0) mmol/L Chloride 98.7 (98-107) mmol/L Carbon Dioxide 25 (22-30) mmol/L BUN 25 H (9-20) mg/dL Creatinine 1.9 H 1.9 H (0.8-1.3) mg/dL Glucose 189 H (75-100) mg/dL Calcium 8.6 (8.4-10.2) mg/dL
[2021-01-02] MEDS: METOPROLOL TARTRATE 50 MG TAB PO SCH (21:33)
[2021-01-03 07:12] LABS: Basophils # (Auto) 0.1 K/mm3 (0.0-0.1); Basophils % (Auto) 1.2 % (0.0-1.8); Eosinophils # (Auto) 0.2 K/mm3 (0.0-0.4); Eosinophils % (Auto) 2.4 % (0.0-4.3); Hematocrit 25.5 % (35.5-45.6); Hemoglobin 8.3 gm/dl (11.8-15.2); Lymphocytes # (Auto) 0.5 K/mm3 (1.2-5.4); Lymphocytes % (Auto) 8.4 % (13.4-35.0); Mean Corpuscular HGB Conc 33 % (32-34); Mean Corpuscular Volume 78 fl (84-94); Monocytes # (Auto) 0.5 K/mm3 (0.0-0.8); Monocytes % (Auto) 8.5 % (0.0-7.3); Platelet Count 143 K/mm3 (140-440); Red Blood Count 3.29 M/mm3 (3.65-5.03); Red Cell Distribution Width 18.8 % (13.2-15.2)
[2021-01-03 07:16] LABS: Calcium 8.3 mg/dL (8.4-10.2)
[2021-01-03] MEDS: IPRATROPIUM/ALBUTEROL SULFATE 3 ML AMPUL.NEB IH SCH ×3 (08:15→23:12)
--- NOTE | 2021-01-03 08:41 | Progress Note ---
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 Objective - Exam Narrative Exam: General appearance: well-developed, well-nourished, obese EENT: ATNC, PERRL, mucous membranes moist Neck: no JVD, no carotid bruit Respiratory: Present: Decreased Breath Sounds Cardiology: tachycardia Gastrointestinal: normoactive bowel sounds, no tenderness, no distended, no masses, obese Integumentary: no rash, warm and dry Neurologic: no focal deficit, no asterixis, alert and oriented x3 Musculoskeletal: other (edema in BLE) Psychiatric: cooperative - Vital Signs Vital signs: Vital Signs - 12hr 01/02/21 01/02/21 01/03/21 21:33 23:59 03:58 Temperature 98.2 F 98.0 F Pulse Rate 95 H 84 94 H Respiratory 18 18 Rate Blood Pressure 147/65 137/83 136/78 O2 Sat by Pulse 93 97 Oximetry 01/03/21 04:00 Temperature Pulse Rate 113 H Respiratory 33 H Rate Blood Pressure O2 Sat by Pulse 98 Oximetry - Lab 01/03/21 06:00 01/03/21 06:00 Most recent lab results Calcium 8.3 mg/dL (8.4-10.2) L 01/03/21 06:00 Medications & Allergies - Medications Allergies/Adverse Reactions: Allergies codeine Allergy (Verified 12/31/20 01:09) Swelling Active Medications: Generic Name Dose Route Start Last Admin Trade Name Freq PRN Reason Stop Dose Admin Acetaminophen 650 mg 12/31/20 02:42 01/02/21 15:45 Acetaminophen 325 Mg Tab PO 650 mg Q4H PRN Administration Pain MILD(1-3)/Fever >100.5/TAN Albuterol/Ipratropium 1 ampul 01/02/21 08:00 01/03/21 08:15 Ipratropium/Albuterol Sulfate 3 Ml Ampul.Neb IH 1 ampul TIDRT GABRIELLA Administration Furosemide 40 mg 12/31/20 10:00 01/02/21 10:59 Furosemide 40 Mg/4 Ml Inj IV 40 mg QDAY GABRIELLA Administration Hydralazine HCl 10 mg 12/31/20 02:44 01/01/21 09:44 Hydralazine 20 Mg/1 Ml Inj IV 10 mg Q6H PRN Administration htn Metoprolol Tartrate 50 mg 01/02/21 22:00 01/02/21 21:33 Metoprolol Tartrate 50 Mg Tab PO 50 mg BID GABRIELLA Administration Nitroglycerin 0.4 mg 12/31/20 02:42 Nitroglycerin 0.4 Mg Tab Subl SL .Q5MIN PRN Chest Pain Ondansetron HCl 4 mg 12/31/20 02:42 01/03/21 01:51 Ondansetron 4 Mg/2 Ml Inj IV 4 mg Q8H PRN Administration Nausea And Vomiting Pantoprazole Sodium 40 mg 12/31/20 07:30 01/02/21 10:59 Pantoprazole 40 Mg Tab PO 40 mg QDAC GABRIELLA Administration Rivaroxaban 20 mg 01/02/21 17:00 01/02/21 16:20 Rivaroxaban 20 Mg Tab PO 20 mg [id number] GABRIELLA Administration Protocol Sodium Chloride 10 ml 12/31/20 10:00 01/02/21 21:34 Sodium Chloride 0.9% 10 Ml Flush Syringe IV 10 ml BID GABRIELLA Administration Sodium Chloride 10 ml 12/31/20 02:42 01/03/21 01:52 Sodium Chloride 0.9% 10 Ml Flush Syringe IV 10 ml PRN PRN Administration LINE FLUSH
[2021-01-03] MEDS: METOPROLOL TARTRATE 50 MG TAB PO SCH ×3 (10:56→22:47)
[2021-01-03] MEDS: FUROSEMIDE 40 MG/4 ML INJ IV SCH (10:56)
[2021-01-03] MEDS: ACETAMINOPHEN 325 MG TAB PO PRN ×2 (11:00→19:16)
[2021-01-03] MEDS: PANTOPRAZOLE 40 MG TAB PO SCH (11:11)
--- NOTE | 2021-01-03 11:48 | Progress Note ---
Subjective Date of service: 01/03/21 Principal diagnosis: CKD Interval history: 60 years old male with history of CHF morbid obesity was brought to the emergency department from [facility] for evaluation of fluid retention and abdominal pain and swelling. Patient states that he has congestive heart failure and takes 40 mg Lasix twice daily. Patient states he is holding fluid which can be seen in his legs and with increased girth of his abdomen. Patient states he was recently discharged from [facility] on Monday for the same chief complaint. Patient denies chest pain, headache, focal neurological deficits. In the ER patient is found to have acute CHF exacerbation patient BNP is 4775. Also patient BUN is 35 creatinine 2.4 01/01 patient is alert and oriented x3. Complains of mild shortness of breath complains of.Numbness in the legs which he says is due to neuropathy. He denies any cough or chest pain. Denies fever or chills. Nephrology and cardiology not es reviewed. Lab results reviewed 01/02 patient is resting with CPAP, no apparent distress and he offers no specific complaints. Medications adjusted for his hypertension and tachycardia 01/03 patient is resting in the bed with CPAP on his face. Alert and oriented and offers no specific complaints. Lab results reviewed Assessment and plan Volume overload Cardiology note reviewed Continue IV diuresis Echo results reviewed EF 45 to 50% Patient has a negative fluid balance of 2600 mL in the past 24 hours He has lost 10 kg since admission Cor pulmonale Cardiology note reviewed Chronic hypoxia Patient is O2 dependent and states he is on 4 L at home via nasal cannula Atrial fibrillation-rate controlled now Continue Xarelto Continue metoprolol 25 mg twice daily Acute kidney injury Rule out acute on chronic kidney disease Nephrology consulted. Nephrology note reviewed Lab results reviewed Continue diuresis Avoid nephrotoxins Obstructive sleep apnea on CPAP at at bedtime Morbid obesity Due to excess calories Counseling on diet, exercise and weight loss was emphasized Normocytic anemia No overt bleeding H&H stable Monitor H&H Objective - Constitutional Vitals: Vital Signs - 12hr 01/02/21 01/03/21 01/03/21 23:59 03:58 04:00 Temperature 98.2 F 98.0 F Pulse Rate 84 94 H 113 H Pulse Rate [ Anterior Bilateral Throughout] Respiratory 18 18 33 H Rate Respiratory Rate [Anterior Bilateral Throughout] Blood Pressure 137/83 136/78 O2 Sat by Pulse 93 97 98 Oximetry 01/03/21 01/03/21 01/03/21 08:03 08:23 08:54 Temperature 98.7 F Pulse Rate 124 H Pulse Rate [ 98 H Anterior Bilateral Throughout] Respiratory 26 H Rate Respiratory 23 Rate [Anterior Bilateral Throughout] Blood Pressure 133/82 O2 Sat by Pulse 91 96 Oximetry General appearance: Present: no acute distress, obese - EENT Eyes: PERRL, EOM intact ENT: hearing intact - Neck Neck: supple, normal ROM - Respiratory Respiratory effort: normal Respiratory: bilateral: CTA, diminished - Cardiovascular Rhythm: irregularly irregular Heart Sounds: Present: S1 & S2 Extremities: No edema - Gastrointestinal General gastrointestinal: Present: soft, non-tender - Integumentary Integumentary: clear - Musculoskeletal Musculoskeletal: strength equal bilaterally - Neurologic Neurologic: moves all extremities - Psychiatric Psychiatric: appropriate mood/affect - Labs CBC & Chem 7: 01/03/21 06:00 01/03/21 06:00 Labs: Abnormal lab results 01/02/21 01/02/21 01/02/21 Range/Units 10:43 16:39 16:39 RBC 3.34 L (3.65-5.03) M/mm3 Hgb 8.6 L (11.8-15.2) gm/dl Hct 26.0 L (35.5-45.6) % MCV 78 L (84-94) fl MCH 26 L (28-32) pg RDW 19.6 H (13.2-15.2) % Lymph % (Auto) (13.4-35.0) % [place] % (Auto) (0.0-7.3) % Lymph # (Auto) (1.2-5.4) K/mm3 Seg Neutrophils % (40.0-70.0) % PT 20.6 H (12.2-14.9) Sec. INR 1.78 H (0.87-1.13) APTT 39.0 H (24.2-36.6) Sec. BUN (9-20) mg/dL Creatinine (0.8-1.3) mg/dL Glucose (75-100) mg/dL POC Glucose 223 H (70-105) mg/dL Calcium (8.4-10.2) mg/dL 01/02/21 01/03/21 01/03/21 Range/Units 16:39 06:00 06:00 RBC 3.29 L (3.65-5.03) M/mm3 Hgb 8.3 L (11.8-15.2) gm/dl Hct 25.5 L (35.5-45.6) % MCV 78 L (84-94) fl MCH 25 L (28-32) pg RDW 18.8 H (13.2-15.2) % Lymph % (Auto) 8.4 L (13.4-35.0) % [place] % (Auto) 8.5 H (0.0-7.3) % Lymph # (Auto) 0.5 L (1.2-5.4) K/mm3 Seg Neutrophils % 79.5 H (40.0-70.0) % PT (12.2-14.9) Sec. INR (0.87-1.13) APTT (24.2-36.6) Sec. BUN 25 H (9-20) mg/dL Creatinine 1.9 H 2.0 H (0.8-1.3) mg/dL Glucose 171 H (75-100) mg/dL POC Glucose (70-105) mg/dL Calcium 8.3 L (8.4-10.2) mg/dL
--- NOTE | 2021-01-03 14:48 | Progress Note ---
Subjective Date of service: 01/03/21 Principal diagnosis: CKD Interval history: follow-up appears in NAD Assessment and Plan - Patient Problems (1) Chronic atrial fibrillation Current Visit: Yes Status: Acute Plan to address problem: Continue rate control strategy and chronic oral anticoagulation. 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 cont IV diuresis, follow BMP, diuresis as much as possible, CXR did not show CHF Objective Vital Signs Temp Pulse Pulse Resp Resp BP Pulse Ox 01/03/21 13:50 91 H 20 01/03/21 08:54 96 01/03/21 08:23 98 H 23 01/03/21 08:03 98.7 F 124 H 26 H 133/82 91 01/03/21 04:00 113 H 33 H 98 01/03/21 03:58 98.0 F 94 H 18 136/78 97 01/02/21 23:59 98.2 F 84 18 137/83 93 01/02/21 21:33 95 H 147/65 01/02/21 20:40 97 01/02/21 20:37 63 29 H 97 01/02/21 20:36 66 29 H 01/02/21 19:01 98.6 F 95 H 20 147/65 100 01/02/21 15:49 98.3 F 111 H 24 157/95 93 - Physical Examination General: No Apparent Distress Neck: Positive: neck supple Cardiac: Positive: Reg Rate and Rhythm, S1/S2 Lungs: Positive: Normal Exam Neuro: Positive: Grossly Intact Abdomen: Positive: Distended. Negative: Pulsations/Bruits Skin: Positive: Clear Extremities: Present: +1 Edema - Labs and Meds Coagulation 01/02/21 Range/Units 16:39 PT 20.6 H (12.2-14.9) Sec. INR 1.78 H (0.87-1.13) APTT 39.0 H (24.2-36.6) Sec. CBC 01/02/21 01/03/21 Range/Units 16:39 06:00 WBC 7.2 6.5 (4.5-11.0) K/mm3 RBC 3.34 L 3.29 L (3.65-5.03) M/mm3 Hgb 8.6 L 8.3 L (11.8-15.2) gm/dl Hct 26.0 L 25.5 L (35.5-45.6) % Plt Count 154 143 (140-440) K/mm3 Lymph # (Auto) 0.5 L (1.2-5.4) K/mm3 [place] # (Auto) 0.5 (0.0-0.8) K/mm3 Eos # (Auto) 0.2 (0.0-0.4) K/mm3 Baso # (Auto) 0.1 (0.0-0.1) K/mm3 Comprehensive Metabolic Panel 01/02/21 01/03/21 Range/Units 16:39 06:00 Sodium 137 (137-145) mmol/L Potassium 4.5 (3.6-5.0) mmol/L Chloride 100.0 (98-107) mmol/L Carbon Dioxide 26 (22-30) mmol/L BUN 25 H (9-20) mg/dL Creatinine 1.9 H 2.0 H (0.8-1.3) mg/dL Glucose 171 H (75-100) mg/dL Calcium 8.3 L (8.4-10.2) mg/dL
[2021-01-03] MEDS: RIVAROXABAN 20 MG TAB PO SCH (17:04)
[2021-01-04] MEDS: ACETAMINOPHEN 325 MG TAB PO PRN ×3 (00:49→15:29)
[2021-01-04 06:04] LABS: Basophils # (Auto) 0.1 K/mm3 (0.0-0.1); Basophils % (Auto) 1.2 % (0.0-1.8); Eosinophils # (Auto) 0.2 K/mm3 (0.0-0.4); Eosinophils % (Auto) 3.4 % (0.0-4.3); Hematocrit 26.5 % (35.5-45.6); Hemoglobin 8.5 gm/dl (11.8-15.2); Lymphocytes # (Auto) 0.7 K/mm3 (1.2-5.4); Mean Corpuscular HGB Conc 32 % (32-34); Mean Corpuscular Volume 78 fl (84-94); Monocytes # (Auto) 0.6 K/mm3 (0.0-0.8); Monocytes % (Auto) 8.9 % (0.0-7.3); Platelet Count 157 K/mm3 (140-440); Red Blood Count 3.39 M/mm3 (3.65-5.03); Red Cell Distribution Width 19.6 % (13.2-15.2)
[2021-01-04 06:09] LABS: Calcium 8.1 mg/dL (8.4-10.2)
[2021-01-04] MEDS: IPRATROPIUM/ALBUTEROL SULFATE 3 ML AMPUL.NEB IH SCH ×3 (08:27→21:12)
[2021-01-04] MEDS: PANTOPRAZOLE 40 MG TAB PO SCH (09:12)
[2021-01-04] MEDS: FUROSEMIDE 40 MG/4 ML INJ IV SCH (09:12)
[2021-01-04] MEDS: METOPROLOL TARTRATE 50 MG TAB PO SCH (11:00)
--- NOTE | 2021-01-04 12:15 | Progress Note ---
Assessment and Plan - Patient Problems (1) Chronic atrial fibrillation Current Visit: Yes Status: Acute Plan to address problem: Continue rate control strategy and chronic oral anticoagulation. Subjective Date of service: 01/04/21 Principal diagnosis: CKD Interval history: Patient is comfortable, no cardiac complaints, looks and feels better. Objective Vital Signs Temp Pulse Pulse Pulse Resp Resp BP 01/04/21 10:05 91 H 103/58 01/04/21 10:00 01/04/21 08:56 97.7 F 94 H 18 118/76 01/04/21 08:30 89 20 01/04/21 06:19 98.4 F 01/04/21 05:00 68 F L 68 01/04/21 02:00 84 01/03/21 23:40 98.0 F 84 18 131/68 01/03/21 23:21 88 20 01/03/21 23:18 90 24 01/03/21 23:16 01/03/21 22:47 88 135/82 01/03/21 22:00 88 20 01/03/21 21:55 115 H 20 01/03/21 20:41 84 135/82 01/03/21 19:51 98.0 F 84 20 135/82 01/03/21 19:16 18 01/03/21 15:29 98.3 F 90 20 130/62 01/03/21 14:00 107 H 107 H 20 01/03/21 13:50 91 H 20 01/03/21 13:06 98.7 F 82 24 126/78 BP Pulse Ox 01/04/21 10:05 100 01/04/21 10:00 95 01/04/21 08:56 93 01/04/21 08:30 98 01/04/21 06:19 01/04/21 05:00 131/78 01/04/21 02:00 01/03/21 23:40 96 01/03/21 23:21 01/03/21 23:18 98 01/03/21 23:16 98 01/03/21 22:47 01/03/21 22:00 95 01/03/21 21:55 95 01/03/21 20:41 01/03/21 19:51 92 01/03/21 19:16 01/03/21 15:29 99 01/03/21 14:00 95 01/03/21 13:50 05/23/21 13:06 93 - Physical Examination General: No Apparent Distress Neck: Positive: neck supple Cardiac: Positive: irregularly irregular Lungs: Positive: Decreased Breath Sounds Neuro: Positive: Grossly Intact Abdomen: Positive: Distended Skin: Positive: Clear Extremities: Present: edema (Trace) - Labs and Meds CBC 01/04/21 Range/Units 05:09 WBC 6.3 (4.5-11.0) K/mm3 RBC 3.39 L (3.65-5.03) M/mm3 Hgb 8.5 L (11.8-15.2) gm/dl Hct 26.5 L (35.5-45.6) % Plt Count 157 (140-440) K/mm3 Lymph # (Auto) 0.7 L (1.2-5.4) K/mm3 [place] # (Auto) 0.6 (0.0-0.8) K/mm3 Eos # (Auto) 0.2 (0.0-0.4) K/mm3 Baso # (Auto) 0.1 (0.0-0.1) K/mm3 Comprehensive Metabolic Panel 01/04/21 Range/Units 05:09 Sodium 134 L (137-145) mmol/L Potassium 4.5 (3.6-5.0) mmol/L Chloride 97.9 L (98-107) mmol/L Carbon Dioxide 25 (22-30) mmol/L BUN 32 H (9-20) mg/dL Creatinine 2.4 H (0.8-1.3) mg/dL Glucose 128 H (75-100) mg/dL Calcium 8.1 L (8.4-10.2) mg/dL
--- NOTE | 2021-01-04 12:20 | Progress Note ---
Assessment and Plan Assessment: CHF exacerbation Hypertension Morbid obesity ALFREDA (acute kidney injury) Plan: Renal labs reviewed. 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 He complains of having pain to feet. States breathing is better. Objective - Vital Signs Vital signs: Vital Signs - 12hr 01/04/21 01/04/21 01/04/21 02:00 05:00 06:19 Temperature 68 F L 98.4 F Pulse Rate 84 68 Pulse Rate [ Anterior Bilateral Throughout] Respiratory Rate Respiratory Rate [Anterior Bilateral Throughout] Blood Pressure Blood Pressure 131/78 [Left] O2 Sat by Pulse Oximetry 01/04/21 01/04/21 01/04/21 08:30 08:56 10:00 Temperature 97.7 F Pulse Rate 94 H Pulse Rate [ 89 Anterior Bilateral Throughout] Respiratory 18 Rate Respiratory 20 Rate [Anterior Bilateral Throughout] Blood Pressure 118/76 Blood Pressure [Left] O2 Sat by Pulse 98 93 95 Oximetry 01/04/21 10:05 Temperature Pulse Rate 91 H Pulse Rate [ Anterior Bilateral Throughout] Respiratory Rate Respiratory Rate [Anterior Bilateral Throughout] Blood Pressure 103/58 Blood Pressure [Left] O2 Sat by Pulse 100 Oximetry - General Appearance General appearance: well-developed, appears stated age, fatigue EENT: ATNC, PERRL, hearing intact, vision intact Neck: no JVD, supple Respiratory: Present: Decreased Breath Sounds Cardiology: S1S2 Gastrointestinal: normoactive bowel sounds Integumentary: warm and dry Neurologic: alert and oriented x3 Musculoskeletal: other (mild edema) - Lab 01/04/21 05:09 01/04/21 05:09 Most recent lab results Calcium 8.1 mg/dL (8.4-10.2) L 01/04/21 05:09 Medications & Allergies - Medications Allergies/Adverse Reactions: Allergies codeine Allergy (Verified 12/31/20 01:09) Swelling Active Medications: Generic Name Dose Route Start Last Admin Trade Name Freq PRN Reason Stop Dose Admin Acetaminophen 650 mg 12/31/20 02:42 01/04/21 06:17 Acetaminophen 325 Mg Tab PO 650 mg Q4H PRN Administration Pain MILD(1-3)/Fever >100.5/TAN Albuterol/Ipratropium 1 ampul 01/02/21 08:00 01/04/21 08:27 Ipratropium/Albuterol Sulfate 3 Ml Ampul.Neb IH 1 ampul TIDRT GABRIELLA Administration Furosemide 40 mg 12/31/20 10:00 01/04/21 09:12 Furosemide 40 Mg/4 Ml Inj IV 40 mg QDAY GABRIELLA Administration Hydralazine HCl 10 mg 12/31/20 02:44 01/01/21 09:44 Hydralazine 20 Mg/1 Ml Inj IV 10 mg Q6H PRN Administration htn Metoprolol Tartrate 50 mg 01/02/21 22:00 01/04/21 11:00 Metoprolol Tartrate 50 Mg Tab PO Not Given BID GABRIELLA Nitroglycerin 0.4 mg 12/31/20 02:42 Nitroglycerin 0.4 Mg Tab Subl SL .Q5MIN PRN Chest Pain Ondansetron HCl 4 mg 12/31/20 02:42 01/03/21 01:51 Ondansetron 4 Mg/2 Ml Inj IV 4 mg Q8H PRN Administration Nausea And Vomiting Pantoprazole Sodium 40 mg 12/31/20 07:30 01/04/21 09:12 Pantoprazole 40 Mg Tab PO 40 mg QDAC GABRIELLA Administration Rivaroxaban 15 mg 01/04/21 17:00 Rivaroxaban 15 Mg Tab PO QPMDIAB [facility] Protocol Sodium Chloride 10 ml 12/31/20 10:00 01/04/21 09:12 Sodium Chloride 0.9% 10 Ml Flush Syringe IV 10 ml BID GABRIELLA Administration Sodium Chloride 10 ml 12/31/20 02:42 01/03/21 01:52 Sodium Chloride 0.9% 10 Ml Flush Syringe IV 10 ml PRN PRN Administration LINE FLUSH
--- NOTE | 2021-01-04 13:25 | Discharge Summary ---
Providers - Providers Date of Admission: 12/31/20 01:29 Date of discharge: 01/04/21 Attending physician: LIANG MATA 12/31/20 02:42 Consult to Physician [CONS] Routine Comment: Consulting Provider: PAULA MAHER Physician Instructions: Reason For Exam: CHF 12/31/20 02:53 Consult to Physician [CONS] Routine Comment: Consulting Provider: JUANCARLOS TURNER Physician Instructions: Reason For Exam: ckd 12/31/20 06:34 Consult to Wound/ET Nurse [CONS] Routine Reason For Exam: wound eval Primary care physician: MIKEY ARRIETA Hospitalization Condition: Fair Hospital course: 60 years old male with history of CHF morbid obesity was brought to the emergency department from [facility] for evaluation of fluid retention and abdominal pain and swelling. Patient states that he has congestive heart failure and takes 40 mg Lasix twice daily. Patient states he is holding fluid which can be seen in his legs and with increased girth of his abdomen. Patient states he was recently discharged from [facility] on Monday for the same chief complaint. Patient denies chest pain, headache, focal neurological deficits. In the ER patient is found to have acute CHF exacerbation patient BNP is 4775. Also patient BUN is 35 creatinine 2.4 01/01 patient is alert and oriented x3. Complains of mild shortness of breath c omplains of.Numbness in the legs which he says is due to neuropathy. He denies any cough or chest pain. Denies fever or chills. Nephrology and cardiology notes reviewed. Lab results reviewed 01/02 patient is resting with CPAP, no apparent distress and he offers no specific complaints. Medications adjusted for his hypertension and tachycardia 01/03 patient is resting in the bed with CPAP on his face. Alert and oriented and offers no specific complaints. Lab results reviewed 01/04 doing well, no complaints, medically stable for discharge Assessment and plan Volume overload Cardiology note reviewed Continue IV diuresis Echo results reviewed EF 45 to 50% Patient has a negative fluid balance of 2600 mL in the past 24 hours He has lost 15 kg secondary to diuresis since admission Cor pulmonale Cardiology note reviewed Chronic hypoxia Patient is O2 dependent and states he is on 4 L at home via nasal cannula Atrial fibrillation-rate controlled now Continue Xarelto Continue metoprolol 25 mg twice daily Acute kidney injury Rule out acute on chronic kidney disease Nephrology consulted. Nephrology note reviewed Lab results reviewed Per review of nephrology note patient serum creatinine is at baseline (2.4) Obstructive sleep apnea He is on CPAP at at bedtime Morbid obesity Due to excess calories Counseling on diet, exercise and weight loss was emphasized Normocytic anemia No overt bleeding H&H stable Disposition: [id number] [facility] C[facility] Final Discharge Diagnosis (Prints w/discharge instructions): Volume overload Time spent for discharge: 38 minutes Core Measure Documentation - Palliative Care Palliative Care/ Comfort Measures: Not Applicable - Core Measures Any of the following diagnoses?: none Exam - Constitutional Vitals: Temp Pulse Resp BP Pulse Ox 97.5 F L 97 H 18 142/78 93 01/04/21 12:09 01/04/21 12:09 01/04/21 12:09 01/04/21 12:09 01/04/21 12:09 General appearance: Present: no acute distress - EENT Eyes: Present: PERRL, EOM intact ENT: hearing intact, clear oral mucosa - Neck Neck: Present: supple, normal ROM - Respiratory Respiratory effort: normal Respiratory: bilateral: CTA, diminished - Cardiovascular Rhythm: regular Heart Sounds: Present: S1 & S2 - Extremities Extremity abnormal: edema (Trace bilateral lower extremity edema) - Abdominal General gastrointestinal: Present: soft, non-tender Male genitourinary: Present: deferred - Rectal Rectal Exam: deferred - Integumentary Integumentary: Present: clear - Musculoskeletal Musculoskeletal: strength equal bilaterally - Psychiatric Psychiatric: appropriate mood/affect - Neurologic Neurologic: no focal deficits Plan Activity: advance as tolerated Weight Bearing Status: Full Weight Bearing Diet: regular, low fat, low cholesterol, low salt Special Instructions: restrict fluid intake to (1500 ml), home oxygen via Follow up with: MIKEY ARRIETA MD [Primary Care Provider] - 3-5 Days Prescriptions: Furosemide [Lasix] 40 mg PO DAILY #30 tablet Metoprolol [Lopressor TAB] 50 mg PO BID #60 tablet
[2021-01-04] MEDS ORDERED: RIVAROXABAN 15 MG TAB PO SCH (17:00)
[2021-01-04 18:37] VITALS: BP 121/72
== END 2021-01-05 01:25 | DRG 683 ==
LOC: ED 20:47 → OBSVTOIN 12-31 01:29 → 4A 12-31 01:29
PROVIDERS: ADMIT Hospitalist; ATTEND Internal Medicine
PROC: 5A09357 Assistance with Respiratory Ventilation, Less than 24 Consecutive Hours, Continuous Positive Airway Pressure (ICD-10-PCS; principal; 2020-12-31)
PROC: 5A09357 Assistance with Respiratory Ventilation, Less than 24 Consecutive Hours, Continuous Positive Airway Pressure (ICD-10-PCS; 2021-01-01)
PROC: 5A09357 Assistance with Respiratory Ventilation, Less than 24 Consecutive Hours, Continuous Positive Airway Pressure (ICD-10-PCS; 2021-01-02)
PROC: 5A09357 Assistance with Respiratory Ventilation, Less than 24 Consecutive Hours, Continuous Positive Airway Pressure (ICD-10-PCS; 2021-01-03)
DX: N17.9 Acute kidney failure, unspecified (principal); Z68.42 Body mass index [BMI] 45.0-49.9, adult; I13.0 Hypertensive heart and chronic kidney disease with heart failure and stage 1 through stage 4 chronic kidney disease, or unspecified chronic kidney disease; E87.70 Fluid overload, unspecified; Z20.822 Contact with and (suspected) exposure to COVID-19; I50.9 Heart failure, unspecified; N18.9 Chronic kidney disease, unspecified; D64.9 Anemia, unspecified; G47.33 Obstructive sleep apnea (adult) (pediatric); I27.81 Cor pulmonale (chronic); I48.91 Unspecified atrial fibrillation; E66.01 Morbid (severe) obesity due to excess calories; Z71.3 Dietary counseling and surveillance; Z88.5 Allergy status to narcotic agent; Z79.899 Other long term (current) drug therapy
CPT/HCPCS: 36415; 71045; 80048; 80053; 82565; 82962; 83690; 83880; 85025; 85027; 85610; 85730; 87116; 87641; 93005; 94640; 94660; 96372; 96374; 96375; G0378; J0360; J1644; J1940; J2405; U0003